=== PATIENT | male | born 1970 | race Caucasian/White ===

== ENCOUNTER 2016-07-31 18:10 | Emergency (ER) | payer BC ==
[2016-07-31] MEDS ORDERED: LORazepam 0.5 MG TABLET ONE (18:46)
--- NOTE | 2016-07-31 19:44 | ER NURSING DOCUMENTATION ---
Nurse's Notes [facility] Name:Richard Garcia Age:46 yrs Sex:Male :1970 Arrival Date:07/31/2016 Time:18:10 Bed1 Private MD: Diagnosis:Anxiety Reaction;Dehydration Presentation: 07/31 18:15 Presenting complaint: Patient states: Clammy hands, anxious, SOB. Transition of care: tg patient was not received from another setting of care. 18:15 Acuity: JUAN 3 tg 18:15 Method Of Arrival: Private Vehicle tg Triage Assessment: 18:32 General: Appears in no apparent distress, Behavior is anxious, cooperative. Pain: tg Complains of pain in chest Quality of pain is described as "tightness", mild. Neuro: Level of Consciousness is awake, alert. Respiratory: Respiratory effort is even, unlabored. Derm: Skin is clammy, Skin is pink, Skin temperature is warm. Musculoskeletal:. 18:33 Respiratory: Reports shortness of breath. tg 18:54 Respiratory: the patients shortness of breath has resolved. tg Historical: - Allergies: No known drug Allergies; - Home Meds: 1. None - PMHx: None; - PSHx: Appendectomy; - Tetanus: < 10 years. - Ebola Screening: : Patient negative for fever greater than or equal to 101.5 degrees Fahrenheit, and additional compatible Ebola Virus Disease symptoms. Patient denies exposure to infectious person. Patient denies travel to an Ebola-affected area in the 21 days before illness onset. No symptoms or risks identified at this time. . - Immunization history: Flu Vaccine >1 year. - Social history: Smoking status: Patient uses tobacco products, light tobacco smoker. Patient uses alcohol marijuana. Screenin:33 Infectious Disease Risk Unable to Obtain. Abuse screen: Denies threats or abuse. Denies tg injuries from another. Nutritional screening: No deficits noted. Assessment: 18:54 Cardiovascular: Rhythm is sinus rhythm. Respiratory: Airway is patent Breath sounds are tg clear bilaterally. 19:03 Reassessment: Pt reports he may have accidently taken his girlfriend's Adderall, tg because she mixes it in water and he may have consumed the water. . Vital Signs: 18:18 BP 151 / 85; Pulse 68; Resp 18; Temp 98.4(TE); Pulse Ox 96% on R/A; tg 19:42 BP 124 / 81; Pulse 66; Resp 17; Pulse Ox 94% on R/A; Pain 0/10; rh ED Course: 18:12 Patient arrived in ED. lm3 18:15 Vick Arshad RN is Primary Nurse. tg 18:16 Triage completed. tg 18:22 EKG done. (by ED staff). Reviewed by Leander Lucas MD. tg 18:33 Arm band placed on Bed in low position Call Light in Reach Gowned HOB Elevated. tg 18:34 Valuables Remains with patient. conference planner on. Pulse ox on. tg 18:42 Missed attempts: 20 gauge X 1 Bleeding controlled, band aid applied, catheter tip tg intact. 18:45 Inserted peripheral IV: 20 gauge in right antecubital area and blood collected. tg 18:53 Report given to NELA Plascencia. tg 18:54 Leander Lucas MD is Attending Physician. cd 19:10 Assisted to bathroom. rh 19:10 Diet: Patient given water. Tolerated well. rh Administered Medications: 18:40 Drug: Ativan 0.5 mg; Route: PO; tg 19:43 Follow up: Response: Anxiety decreased rh 18:52 Drug: NS 0.9% 1000 ml; Route: IV; Rate: bolus; Site: right antecubital; Delivery: tg [place] Tubing; 19:35 Follow up: IV Status: Completed infusion; IV Intake: 1000ml rh Intake: 19:35 IV: 1000ml; Total: 1000ml. rh Outcome: 18:55 Discharge ordered by . cd 19:42 Discharged to home ambulatory, with significant other. rh 19:42 Condition: improved 19:42 Discharge Assessment: Patient awake, alert and oriented x 3. No cognitive and/or functional deficits noted. Patient verbalized understanding of disposition instructions. 19:42 Discharge instructions given to patient, significant other, Instructed on discharge instructions, follow up and referral plans. Demonstrated understanding of instructions. 19:42 IV D/Josh 19:44 Patient left the ED. rh Signatures: Vick Arshad RN RN tg Daley, Chris, MD MD cd Hofsess, Rachel Ca Rossi [id number]
--- NOTE | 2016-07-31 19:44 | ER PHYSICIAN DOCUMENTATION ---
Physician Documentation [facility] Name:Richard Garcia Age:46 yrs Sex:Male :1970 Arrival Date:07/31/2016 Time:18:10 Bed1 Private MD: Leander Zuleta Disposition: 07/31 18:50 Chart complete. cd 18:54 Critical Care: not applicable. cd Disposition: 07/31/16 18:55 Discharged to Home/Self Care. Impression: Anxiety Reaction, Dehydration. - Condition is Good. - Discharge Instructions: DEHYDRATION (8y-Adult), Anguish - ANXIETY REACTION. - Medical Reconciliation form form. - Follow up: Private Physician; When: 7 - 10 days; Reason: Recheck today's complaints, Continuance of care. - Problem is new. - Symptoms are resolved. HPI: 18:15 This 46 yrs old Male presents to ER via Private Vehicle with complaints of cd Anxious, mild SOB. 18:15 The patient has shortness of breath at rest, hyperventilating. Patient reports drinking cd too much wine last night and smoking pot. He is from [place] of town and also feels like the altitude is affecting him. He may have accidentally ingested one 10 mg tablet of Adderall that is his girlfriend's med. No other prescription meds or street drugs.. Onset: The symptom(s)/episode began/occurred acutely, today. Duration: The symptoms are continuous, but are steadily getting better. Associated signs and symptoms: Pertinent positives: nausea, anxiety, SOB, dehydration. Severity of symptoms: At their worst the symptoms were moderate in the emergency department the symptoms are unchanged. The patient has not experienced similar symptoms in the past. Historical: - Allergies: No known drug Allergies; - Home Meds: 1. None - PMHx: None; - PSHx: Appendectomy; - Tetanus: < 10 years. - Ebola Screening: : Patient negative for fever greater than or equal to 101.5 degrees Fahrenheit, and additional compatible Ebola Virus Disease symptoms. Patient denies exposure to infectious person. Patient denies travel to an Ebola-affected area in the 21 days before illness onset. No symptoms or risks identified at this time. . - Immunization history: Flu Vaccine >1 year. - Social history: Smoking status: Patient uses tobacco products, light tobacco smoker. Patient uses alcohol marijuana. ROS: 18:32 ENT: Negative for injury, pain, epistaxis and discharge. cd Neck: Negative for injury, pain, stiffness and swelling. Abdomen/GI: Negative for abdominal pain, nausea, vomiting, diarrhea, constipation, distension, melena, hematochezia and hematemesis. Back: Negative for injury, pain or muscle spasms. : Negative for injury, bleeding, discharge, swelling, dysuria, frequency or urgency. Skin: Negative for injury, rash, itching and discoloration. 18:32 Neuro: Negative for headache, weakness, numbness, tingling, and seizure. cd 18:32 Constitutional: Positive for poor PO intake, Negative for chills, fever. 18:32 Cardiovascular: Negative for chest pain, palpitations. 18:32 Respiratory: Positive for shortness of breath, Negative for cough, dyspnea on exertion, hemoptysis, pleurisy, sputum production, wheezing. 18:32 All other systems are negative. Exam: Head/Face: Normocephalic, atraumatic. Eyes: Pupils equal round and reactive to light, extra-ocular motions intact. Lids and lashes normal. Conjunctiva and sclera are non-icteric and not injected. Cornea within normal limits. Periorbital areas with no swelling, redness, or edema. ENT: Nares patent. No nasal discharge, no septal abnormalities noted. Tympanic membranes are normal and external auditory canals are clear. Oropharynx with no redness, swelling, or masses, exudates, or evidence of obstruction, uvula midline. Mucous membranes dry Neck: Trachea midline, no thyromegaly or masses palpated, and no cervical lymphadenopathy. Supple, full range of motion without nuchal rigidity, or vertebral point tenderness. No Meningismus. Abdomen/GI: Soft, non-tender, with normal bowel sounds. No distension or tympany. No guarding or rebound. No evidence of tenderness throughout. Back: No spinal tenderness. No costovertebral tenderness. Full range of motion. Skin: Warm, dry with normal turgor. Normal color with no rashes, no lesions, and no evidence of cellulitis. MS/ Extremity: Pulses equal, no cyanosis. Neurovascular intact. Full, normal range of motion. 18:32 Neuro: Awake and alert, GCS 15, oriented to person, place, time, and situation. cd Cranial nerves II-XII grossly intact. Motor strength 5/5 in all extremities. Sensory grossly intact. Cerebellar exam normal. Normal gait. 18:32 Constitutional: The patient appears alert, awake, non-diaphoretic, non-toxic, well developed, well nourished, anxious. 18:32 Cardiovascular: Rate: normal, Rhythm: regular, Pulses: no pulse deficits are appreciated, Heart sounds: normal. 18:32 Respiratory: the patient does not display signs of respiratory distress, Respirations: no acute changes, Breath sounds: are normal, clear throughout. Vital Signs: 18:18 BP 151 / 85; Pulse 68; Resp 18; Temp 98.4(TE); Pulse Ox 96% on R/A; tg 19:42 BP 124 / 81; Pulse 66; Resp 17; Pulse Ox 94% on R/A; Pain 0/10; rh MDM: 18:23 ECG:. cd 18:32 Differential diagnosis: Anxiety Reaction Altitude Illness, Drug Effect. Antibiotic cd administration: Not indicated. 18:50 Data reviewed: vital signs, nurses notes, old medical records, EKG, and as a result, I cd will discharge patient, administer IV fluids, NS bolus, NS maintenence, prescribe sedation medication, lorazepam. Data interpreted: Pulse oximetry: on room air is 99 %. Interpretation: normal. Counseling: I had a detailed discussion with the patient and/or guardian regarding: the historical points, exam findings, and any diagnostic results supporting the discharge/admit diagnosis, the need for outpatient follow up, for a recheck, with the patient's primary care provider, to return to the emergency department if symptoms worsen or persist or if there are any questions or concerns that arise at home. Response to treatment: the patient's symptoms have markedly improved after treatment, the patient's condition has returned to base line, and as a result, I will discharge patient. 18:54 Patient medically screened. cd 07/31 18: Order name: 12-lead EKG; Complete Time: 18:35 tg 07/31 18: Order name: Pulse Ox Continuous; Complete Time: 18:35 tg EC:23 Rate is 71 beats/min. Rhythm is regular. [place] interval is normal. QRS interval is normal. cd QT interval is normal. No Q waves. T waves are Normal. No ST changes noted. Clinical impression: Normal ECG and No evidence of ischemia. Interpreted by me. Dispensed Medications: 18:40 Drug: Ativan 0.5 mg; Route: PO; tg 19:43 Follow up: Response: Anxiety decreased rh 18:52 Drug: NS 0.9% 1000 ml; Route: IV; Rate: bolus; Site: right antecubital; Delivery: tg [place] Tubing; 19:35 Follow up: IV Status: Completed infusion; IV Intake: 1000ml rh Signatures: Vick Arshad RN RN Leander Lucas MD MD cd Hofsess, Rachel rh
== END 2016-07-31 19:44 | disposition home or self-care (01) ==
LOC: ER 18:10
DX: F41.9 Anxiety disorder, unspecified (principal); E86.0 Dehydration; R06.02 Shortness of breath; F17.210 Nicotine dependence, cigarettes, uncomplicated
CPT/HCPCS: 93005; 96360; 99284